=== PATIENT | female | born 1980 | race African-American/Black ===

== ENCOUNTER → 2024-10-29 | Day surgery (SDC) | payer OTHER ==
[~2024-10-29] MED LIST: APPLE CIDER VI300 MG; D3-5000125 MCG; MAG GLYCINATE100 MG; PROPOFOL IV EMULSION 10 MG/ML 20 ML VIAL ONE; VITAMIN B-121000 MCG PO; VITAMIN C1000 MG PO
[2024-10-29] MEDS: LACTATED RINGER'S 1,000 ML ONE (09:41)
[2024-10-29 11:02] VITALS: TEMP 97.4
[2024-10-29 11:35] VITALS: BP 98/75; PULSE 63; RESP 19; O2SAT 100
== END | disposition home or self-care (01) ==
LOC: OR 08:55
PROVIDERS: ATTEND Internal Medicine Gastroenterology
DX: Z12.11 Encounter for screening for malignant neoplasm of colon (principal); K63.5 Polyp of colon; K64.8 Other hemorrhoids; R05.9 Cough, unspecified; Z79.899 Other long term (current) drug therapy
CPT/HCPCS: 45380; 81025; J2704; J7121; 45378